=== PATIENT | female | born 1965 | race Caucasian/White ===

== ENCOUNTER → 2018-01-19 | Outpatient (CLI) | payer OTHER ==
[~2018-01-19] MED LIST: ACTOS 30 MG TAB30 M1; ACTOS 45 MG45 M2 PO; AMARYL4 MG PO; ASPIRIN81 M2 PO; FARXIGA5 MG PO; FLEXERIL PO; GLUCOPHAGE1000 MG PO; IBUPROFEN 200200 M1 PO; LISINOPRIL5 MG PO; MOBIC15 MG PO; NORCO 5-325 TA1 EACH PO; TRAMADOL 50 MG50 MG PO; VICTOZA0.6 MG/0.1 SUBQ; VITAMIN B12 PO
--- NOTE | 2018-02-03 14:36 | H ---
[place] [address] HISTORY AND PHYSICAL Name: PEREZ HAZEL Room: [facility] Khoa#: [id number] Admission: 01/19/18 Attend Phys: Eladio Patterson MD Discharge: Date of : 67 Report #: [id number] THIS REPORT FOR: //name// CC: Eladio Herrera NP DATE OF SERVICE: 01/19/2018 CHIEF COMPLAINT: Low back pain. HISTORY OF PRESENT ILLNESS: The patient is a 52-year-old female who has been referred to the pain clinic for evaluation. The patient has been experiencing pain and discomfort, which has been quite nagging in her low back area. States that it has been going on for greater than a year. She has tried a number of options. She has tried exercises, chiropractic, nonsteroidal anti-inflammatory use, Medrol Dosepak, but continues to find that this pain is chronic and nagging. This is in the lower portion of her back, left side greater than right at this juncture. Denies any trauma. Denies any back surgeries. Rates her pain as a 7/10. Has tried use of jdyu-xni-fwsuqcw medications such as ibuprofen. Finds that meloxicam and cyclobenzaprine can continue to be somewhat beneficial. Notes that the pain is made worse with daily chores and with movement. Pain improves somewhat with rest. She describes it as continuous, constant, shooting, aching, pulling, throbbing, sharp and stabbing. Denies any bowel or bladder dysfunction as a result of this. She has had an MRI, which showed some stenosis in the L2-L3 area. She continues to do stretching exercises at home. ALLERGIES: PENICILLIN. MEDICATIONS: Include low-dose aspirin 81 mg per day, vitamin B12 once daily, metformin 1000 mg b.i.d., glimepiride 4 mg daily, lisinopril 5 mg daily, pioglitazone 45 mg daily, Farxiga 5 mg once a day, Victoza subq, Meloxicam 15 mg daily, cyclobenzaprine 10 mg p.o. b.i.d. PAST MEDICAL HISTORY: Hypertension, diabetes, chronic back pain. PAST SURGICAL HISTORY: Appendectomy in 09/2005. SOCIAL HISTORY: customer retention specialist, she is working at this juncture. Denies use of tobacco. Does drink alcoholic beverages about once per week. REVIEW OF SYSTEMS: Questionnaire in the chart indicates generally generally health, wears glasses, back pain, some difficulty with walking because of the discomfort, [place] [address] HISTORY AND PHYSICAL Name: PEREZ HAZEL Room: [facility]#: [id number] Admission: 01/19/18 Attend Phys: Eladio Patterson MD Discharge: Date of : 67 Report #: [id number] LABORATORY DATA: MRI of the lumbar spine without contrast dated 12/17/2017 reveals an MRI of the lumbar spine. 1. L2-L3 slight retrolisthesis. Loss of disk height. Diffuse disk osteophyte complex with focal posterior disk osteophyte complex with mass effect on the thecal sac. Broad based left lateral disk bulge encroaching on the inferior aspect of the left neural foramen. The right neural foramen is normal. There is a mild facet arthropathy. Prominent posterior epidural fat is seen. Thecal sac 0.8 cm AP. 2. L3-L4 mild diffuse annular disk bulge and facet arthropathy. The neural foramen are maintained. Thecal sac 1.2 cm AP. 3. L4-L5 mild annular disk bulge and facet arthropathy. No neural foramen stenosis. Thecal sac 1.3 cm. 4. L5-S1 disk is normal. PHYSICAL EXAMINATION: GENERAL: The patient is a well-developed female, slightly obese. Appears her stated age. Alert and oriented x 3. AFFECT: Affect appears appropriate. HEENT: Normocephalic and atraumatic with extraocular eye muscles intact. No congestion or sinus complaints. Hearing within normal limits. NECK: No JVD or adenopathy. EXTREMITIES: Judged to be 5/5 in the major muscle groups in the upper extremities, biceps tendons are +1 bilaterally. Muscle cold rolling supervisor is within normal limits. Left and right lateral rotation of her neck and head are unremarkable. ABDOMEN: Nontender. MUSCULOSKELETAL: Appears, generally has normal alignment. DIAGNOSTIC DATA: MRI of her low back shows some 16-degree right convex curvature of the upper lumbar spine. Anterior and posterior spring tests were negative. The patient is able to bend over to touch her toes and notes some discomfort when coming back up. Left and right lateral bending, left and right lateral rotation caused increased discomfort in the left posterior superior iliac spine area. The patient notes increased pain and discomfort with palpation in the area of the left posterior superior iliac spine. Al's sign are negative. The patient's leg hanging in a dependent position were not very problematic. The patient is able to stand on her toes, stand on her heels, sensation to light touch and pinprick in the lower extremities is within normal limits. PAIN CLINIC ASSESSMENT: 1. The patient is not being treated for osteoarthritis or rheumatoid arthritis. 2. 2. Height 5 feet 2 inches, weight 221 pounds, BMI is 38. 3. 3. VITAL SIGNS: Blood pressure is 119/61, heart rate 74, respiratory rate 16, room air saturation 94%, and temperature 98.2. 4. 4. Pain intensity 06/01. [address] [place] [address] HISTORY AND PHYSICAL Name: PEREZ HAZEL Room: [facility]#: [id number] Admission: 01/19/18 Attend Phys: Eladio Patterson MD Discharge: Date of : 67 Report #: [id number] 5. Blood thinner. The patient is not on a blood thinner. 6. History of hypertension. The patient is being treated for hypertension. 7. Opioid greater than 6 weeks. The patient is not on opioid therapy on a regular basis. 8. Risk assessment tool. 9. Functional assessment tool. The patient rates a score of 52-70. The pain impact score in regards to general activity, mood, walking ability, work, relationships with others, sleep, enjoyment of life. 10. Recreational use of drugs. The patient denies use of recreational drugs. 11. Tobacco: The patient denies use of tobacco. The patient occasionally uses alcoholic beverages. IMPRESSION: 1. Myofascial pain in the low back area. 2. Hypertension. 3. Diabetes type 2. RECOMMENDATIONS: We discussed treatment options with the patient. Risks and benefits of a trigger point injection were discussed. The patient is having pain and discomfort in the left posterior superior iliac spine. Movements exacerbate this pain. There is no radiation of this down into a nerve root distribution. The patient will return to the pain clinic at which time she will undergo an injection. We have discussed the pathophysiology of trigger points. These can last for 10s of years. The quicker one is able to eradicate at the better. She will continue with her cyclobenzaprine and Meloxicam. She will not take ibuprofen with this meloxicam. We would like to thank you for letting us participate in her care. We hope she continues to improve. She will return to the pain clinic at which time she will undergo a trigger point injection at the next visit after being precerted by her insurance company. <ELECTRONICALLY SIGNED> By: Eladio Patterson MD 02/03/18 1436 [id number]. Tee Patterson MD /nt
== END ==
LOC: M.PC 02:39
DX: M54.5 Low back pain (principal); M79.1 Myalgia; I10 Essential (primary) hypertension; E11.9 Type 2 diabetes mellitus without complications; Z90.49 Acquired absence of other specified parts of digestive tract

== ENCOUNTER → 2018-03-30 | Outpatient (CLI) | payer OTHER ==
--- NOTE | 2018-04-06 10:23 | PAINCON ---
[address] [address] PAIN MANAGEMENT CONSULTATION Name: PEREZ HAZEL Room: [facility] Couch#: [id number] Admission: 03/30/18 Attend Phys: Eladio Patterson MD Discharge: Date of : 67 Report #: [id number] THIS REPORT FOR: //name// CC: Eladio Herrera NP DATE OF SERVICE: 03/30/2018 FOLLOWUP COMPLAINT: Here for trigger point injection. FOLLOWUP HISTORY: The patient is a 53-year-old female who has been referred to the pain clinic for evaluation. She has been experiencing pain and discomfort, which was quite nagging in her low back area. States that it has been going on for greater than a year. She has tried a number of options. She has been exercising, had chiropractic treatment, nonsteroidal anti-inflammatory use, Medrol Dosepak and still finds that the pain has been quite nagging. At the last evaluation, it was found that she has had a pain in the low back area, which appears to be trigger point in nature. Palpation in this area can reproduce discomfort. Denies any trauma to this area. She has not had surgeries. She has tried coaz-rwy-evukdir medications such as ibuprofen and other nonsteroidal anti-inflammatory medications. Continues to use ibuprofen p.r.n., meloxicam and Flexeril. She notes that her pain is exacerbated with activities of daily living and describes it as a constant, shooting, aching, pulling, throbbing, sharp discomfort. Denies any changes in her bowel or bladder function because of this. MRI showed some stenosis in the L2-L3 area. She also continues to do stretching exercises at home. ALLERGIES: PENICILLIN. MEDICATIONS: Low dose aspirin 81 mg, vitamin B12 daily, metformin 1000 mg b.i.d., glimepiride 4 mg, lisinopril 5 mg daily, pioglitazone 45 mg, Farxiga 5 mg daily, Rebecca subq, meloxicam 15 mg daily, and cyclobenzaprine 10 mg b.i.d. PAIN CLINIC ASSESSMENT: 1. The patient states she is not being treated for osteoarthritis or rheumatoid arthritis. 2. Height 5 feet 4 inches, weight 220 pounds, BMI is 40. 3. VITAL SIGNS: Blood pressure 126/57, heart rate 73, respiratory rate 16, room air saturation 98%, temperature 98.3. Pain intensity 8/10. 4. Fall risk: The patient has not fallen in the last 3 months. 5. Blood thinners: The patient is not on a blood thinner. 6. History of hypertension. The patient is being treated for hypertension. 7. Opioid therapy greater than 6 weeks. The patient is not on opioid therapy program. 8. [place] [address] PAIN MANAGEMENT CONSULTATION Name: PEREZ HAZEL Room: [facility]#: [id number] Admission: 03/30/18 Attend Phys: Eladio Patterson MD Discharge: Date of : 67 Report #: [id number] 9. Functional assessment tool. The patient rates her pain as a ____ on general activities, mood, walking ability, working, relationships with others, sleep and enjoyment as somewhat problematic. 10. Recreational drug use, the patient denies use of recreational drugs. 11. Tobacco: The patient denies use of tobacco. 12. Alcoholic beverages: The patient drinks alcoholic beverages on occasion. PHYSICAL EXAMINATION: GENERAL: The patient is a well-developed white female. Slightly obese. She appears her stated age. She is alert and oriented x3. Her affect is appropriate. HEENT: Normocephalic, atraumatic. Extraocular eye muscles intact. No congestion or sinus complaints. Hearing is within normal limits. Mucous membranes are moist. NECK: Without adenopathy or JVD. Good range of motion. CHEST: Clear to auscultation without rhonchi or crackles. EXTREMITIES: Upper extremity is judged to be 5/5 for the major muscle groups in the upper extremity without sensory changes. Biceps tendons +1 bilaterally. Muscle relations director within normal limits. ABDOMEN: Protuberant. MUSCULOSKELETAL: The lower extremity judged to be 5/5 for the major muscle groups without significant sensory changes. The patient has pain and discomfort in the area of the left posterior superior iliac spine and the area of the gluteus lul and latissimus dorsi. Pressure in this area does reproduce the patient's discomfort. The patient is able to bend over to touch her toes with some discomfort. Left and right lateral bending are not very problematic. Does have some pain and discomfort in the left low back area. IMPRESSION: 1. Myofascial pain in the left low back area. 2. Hypertension. 3. Diabetes type 2. RECOMMENDATIONS: We discussed treatment options with the patient. She has returned to the pain clinic for an injection. Risks and benefits of a trigger point injection, which are infection, increased muscle soreness, elevation in blood glucose sugars given that the patient has diabetes were discussed and the patient elects to proceed. PROCEDURE NOTE: The patient was placed in a sitting position. Her back was sterilely prepped with a chlorhexidine solution and allowed to dry. In the area of the left posterior superior iliac spine and gluteus lul/latissimus dorsi, a trigger point was noted. A 25-gauge needle was then advanced into the area of the discomfort. A total of 80 mg Depo-Medrol and 10 mL of 0.5% bupivacaine was injected. The patient's pain decreased from 8 to 0 at the time of discharge. She will follow up [place] [address] PAIN MANAGEMENT CONSULTATION Name: PEREZ HAZEL Room: [facility]#: [id number] Admission: 03/30/18 Attend Phys: Eladio Patterson MD Discharge: Date of : 67 Report #: [id number] We would like to thank you for letting us participate in her care. We hope she continues to improve. <ELECTRONICALLY SIGNED> By: Eladio Patterson MD 04/06/18 1023 [id number]. Tee Patterson MD /nt
== END | disposition home or self-care (01) ==
LOC: M.PC 03:56
DX: M79.1 Myalgia (principal); I10 Essential (primary) hypertension; E11.9 Type 2 diabetes mellitus without complications; Z88.0 Allergy status to penicillin; Z79.899 Other long term (current) drug therapy; Z79.82 Long term (current) use of aspirin